=== PATIENT | male | born 1990 | race Caucasian/White ===

== ENCOUNTER 2023-07-16 19:08 | Emergency (ER) | payer MEDICAID ==
[~2023-07-16] VITALS: Ht 180.3 cm; Wt 75.3 kg
[2023-07-16 19:24] VITALS: BP 130/85; PULSE 57; RESP 16; O2SAT 100
[2023-07-16] MEDS ORDERED: HYDROcodone/acetaminophen 5mg/325mg tablet PO ONE (19:55)
[2023-07-16] MEDS ORDERED: ceFAZolin 1gm IM kit IM ONE (19:55)
[2023-07-16] MEDS ORDERED: LIDOCAINE 1%/EPI 1:100,000 inj. 10 ML multi-dose vial IJ ONE (20:20)
[2023-07-16] MEDS ORDERED: mupirocin 2% ointment 22GM TP ONE (20:20)
[2023-07-16] MEDS ORDERED: HYDR-3965 PO (21:14)
[2023-07-16] MEDS ORDERED: CEPH500C2 PO (21:14)
[2023-07-16 21:28] VITALS: TEMP 98.5
== END 2023-07-16 21:31 | disposition home or self-care (01) ==
LOC: ER 19:08
DX: S71.111A Laceration without foreign body, right thigh, initial encounter (principal); F12.90 Cannabis use, unspecified, uncomplicated; Z79.1 Long term (current) use of non-steroidal anti-inflammatories (NSAID); W27.0XXA Contact with workbench tool, initial encounter; Y93.89 Activity, other specified; Y92.89 Other specified places as the place of occurrence of the external cause; Y99.8 Other external cause status
CPT/HCPCS: 12035; 73552; 96372; 99284; J0690; J7030; A6258; A6449